=== PATIENT | female | born 1985 | race Caucasian/White ===

== ENCOUNTER 2023-06-04 06:39 | Day surgery (SDC) | payer MEDICARE, SELFPAY ==
--- NOTE | 2023-06-01 08:25 | EKG12_ITS ---
Test Reason : PRE OP Blood Pressure : / mmHG Vent. Rate : 091 BPM Atrial Rate : 091 BPM P-R Int : 184 ms QRS Dur : 090 ms QT Int : 348 ms P-R-T Axes : 066 017 070 degrees QTc Int : 428 ms Normal sinus rhythm Normal ECG Confirmed by Manjit Kunz ([id number]), news editor RUY TIPTON ([id number]) on 06/02/2023 7:43:05 AM Referred By: Stacie Zhu Confirmed By:Manjit Kunz
--- OUTSIDE RECORDS SUMMARY | 2023-06-04 06:42 | XMS RPT_ITS | CCD ---
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 of 2 - PCV) Never done HIV Screening Never done Hepatitis C Screening Never done Sequential Influenza Vaccine (1) Never done COVID-19 Vaccine (2022- season) Never done Assessment & Plan Problem List Items Addressed This Visit Cardiovascular and Mediastinum Hypertension - Primary Going back on amlodipine 10 mg along with lisinopril 40 mg Monitor blood pressure at home AM and PM for 2 weeks and keep a log of the blood pressure Nurse visit for BP check in 2 weeks Potentially adding a medication called carvedilol Relevant Medications amLODIPine (NORVASC) 10 MG tablet prazosin (MINIPRESS) 1 MG capsule Other Relevant Orders TSH with Reflex Free T4 (Completed) Microalbumin/Creatinine Ratio, UR Random (Completed) Lipid Panel (Completed) Comprehensive Metabolic Panel (Completed) Nervous and Auditory Trigeminal neuralgia Not feeling much difference with carbamazepine, encouraged to reach out to Dr. Foreman with further evaluation, still awaiting further imaging Genitourinary Interstitial cystitis Working with Dr. Zhu on further evaluation, no effects of Gemtesa at this time. Looking at further intervention and possibly pudendal nerve injections or Botox injections to help with the pain. Will get records. Other Familial hypercholesterolemia Significant improvement with switching to pravastatin 20 mg, lipid panel on recheck improved slightly, might benefit from increasing pravastatin to 40 mg, still awaiting to hear from patient about that. Surgical menopause on hormone replacement therapy Has been on it for 9 years following hysterectomy in 2017 due to endometriosis. Discussed the long-term complications of staying on hormone replacement, will discuss possibly weaning off of that once her pain is relatively under control as well as her mental health. Obesity, morbid (HCC) Continue to work on lifestyle modifications with controlling underlying anxiety and depression. Relevant Orders Hemoglobin A1c (Completed) Moderate major depression (HCC) Encouraged to look into counseling with EMDR resources. Potentially referring to psychiatry but trying 1 step at a time as patient is overwhelmed. No SI or HI. Agreeable to start prazosin to help with PTSD symptoms. Might benefit from retrying Cymbalta to help with overall pain and treat underlying anxiety and depression which has been tried in the past and was not effective, unable to tell for sure what happened with that. Relevant Orders CBC and Differential (Completed) Other Visit Diagnoses PTSD (post-traumatic stress disorder) Relevant Medications prazosin (MINIPRESS) 1 MG capsule My ongoing relationship with Ayla Mendiola requires continued responsibility and cognitive effort of being the focal point for all services related to chronic condition(s). Return in about 3 months (around 08/26/2023) for Follow Up. SCOTT LUCIO MD [facility] [address] [facility] [id number] Dept: [phone] 09/02/2019 7:50 PM 07/30/2021 1:00 PM 11/11/2022 8:00 AM 02/10/2023 8:28 AM 05/28/2023 10:07 AM Depression Screening Little interest or pleasure in doing things 0 1 1 0 1 Feeling down, depressed, or hopeless 0 1 1 0 1 PHQ-2 Total Score 0 2 2 0 2 Trouble falling or staying asleep, or sleeping too much 3 1 2 0 Feeling tired or having little energy 3 3 3 3 Poor appetite or overeating 1 1 0 1 Feeling bad about yourself - or that you are a failure or have let yourself or your family down 1 1 0 0 Trouble concentrating on things, such as reading the newspaper or watching television 2 2 2 2 Moving or speaking so slowly that other people could have noticed. Or the opposite - being so fidgety or restless that you have been moving around a lot more than usual 0 0 0 0 Thoughts that you would be better off , or of hurting yourself in some way 0 0 0 0 PHQ-9 Total Score 12 10 7 8 If you checked off any problems, how difficult have these problems made it for you to do your work, take care of things at home, or get along with other people? Very difficult Somewhat difficult Somewhat difficult Somewhat difficult documented in this encounter [facility] 05-29-2023 Evaluation + Plan note Associ ated Problem(s): Interstitial cystitis Working with Dr. Zhu on further evaluation, no effects of Gemtesa at this time. Looking at further intervention and possibly pudendal nerve injections or Botox injections to help with the pain. Will get records. [facility] 05-29-2023 Miscellaneous Notes Associate d Problem(s): Interstitial cystitis Working with Dr. Zhu on further evaluation, no effects of Gemtesa at this time. Looking at further intervention and possibly pudendal nerve injections or Botox injections to help with the pain. Will get records. Associated Problem(s): Surgical menopause on hormone replacement therapy Has been on it for 9 years following hysterectomy in 2017 due to endometriosis. Discussed the long-term complications of staying on hormone replacement, will discuss possibly weaning off of that once her pain is relatively under control as well as her mental health. Associated Problem(s): Obesity, morbid (HCC) Continue to work on lifestyle modifications with controlling underlying anxiety and depression. Associated Problem(s): Moderate major depression (HCC) Encouraged to look into counseling with EMDR resources. Potentially referring to psychiatry but trying 1 step at a time as patient is overwhelmed. No SI or HI. Agreeable to start prazosin to help with PTSD symptoms. Might benefit from retrying Cymbalta to help with overall pain and treat underlying anxiety and depression which has been tried in the past and was not effective, unable to tell for sure what happened with that. Associated Problem(s): Familial hypercholesterolemia Significant improvement with switching to pravastatin 20 mg, lipid panel on recheck improved slightly, might benefit from increasing pravastatin to 40 mg, still awaiting to hear from patient about that. Associated Problem(s): Trigeminal neuralgia Not feeling much difference with carbamazepine, encouraged to reach out to Dr. Foreman with further evaluation, still awaiting further imaging Associated Problem(s): Hypertension Going back on amlodipine 10 mg along with lisinopril 40 mg Monitor blood pressure at home AM and PM for 2 weeks and keep a log of the blood pressure Nurse visit for BP check in 2 weeks Potentially adding a medication called carvedilol documented in this encounter [facility] 05-29-2023 Evaluation + Plan note Associ ated Problem(s): Surgical menopause on hormone replacement therapy Has been on it for 9 years following hysterectomy in 2017 due to endometriosis. Discussed the long-term complications of staying on hormone replacement, will discuss possibly weaning off of that once her pain is relatively under control as well as her mental health. [facility] 05-29-2023 Evaluation + Plan note Associ ated Problem(s): Obesity, morbid (HCC) Continue to work on lifestyle modifications with controlling underlying anxiety and depression. [facility] 05-29-2023 Evaluation + Plan note Associ ated Problem(s): Moderate major depression (HCC) Encouraged to look into counseling with EMDR resources. Potentially referring to psychiatry but trying 1 step at a time as patient is overwhelmed. No SI or HI. Agreeable to start prazosin to help with PTSD symptoms. Might benefit from retrying Cymbalta to help with overall pain and treat underlying anxiety and depression which has been tried in the past and was not effective, unable to tell for sure what happened with that. [facility] 05-29-2023 Evaluation + Plan note Associ ated Problem(s): Familial hypercholesterolemia Significant improvement with switching to pravastatin 20 mg, lipid panel on recheck improved slightly, might benefit from increasing pravastatin to 40 mg, still awaiting to hear from patient about that. [facility] 05-29-2023 Evaluation + Plan note Associ ated Problem(s): Trigeminal neuralgia Not feeling much difference with carbamazepine, encouraged to reach out to Dr. Foreman with further evaluation, still awaiting further imaging [facility] 05-28-2023 Evaluation + Plan note Associ ated Problem(s): Hypertension Going back on amlodipine 10 mg along with lisinopril 40 mg Monitor blood pressure at home AM and PM for 2 weeks and keep a log of the blood pressure Nurse visit for BP check in 2 weeks Potentially adding a medication called carvedilol [facility] 05-21-2023 Instructions Breezy Foreman MD - 05/21/2023 8:28 AM EST Ms. Mendiola, While most likely the source of your trigeminal neuropathy (nerve injury) is the old infection, we will get an MRI just to make sure it is not anything different. In the meantime, we will treat it to get rid of any discomfort. Today, we are going to start you on a new medication, called oxcarbazepine. Sometimes it is known by its brand name, Trileptal. It is used for treatment of different conditions, including seizures, migraines, trigeminal neuralgia, neuropathy, or as a mood stabilizer. It works by acting on sodium channels and affecting levels of certain neurotransmitters in the brain as well as acting as a muscle relaxant. We will start at a dose of 150mg in the morning, with an optional dose at nighttime if you have pain in the night. Everyone's body processes medication differently depending on a wide variety of factors. Your dose or frequency may need adjusted over time which does not necessarily mean that it is not the right medicine for you. Many patients require 600mg or more per day. After 2 weeks, let me know if the medication is not strong enough and we may increase the dose. While most patients do very well with the medication, like all medications it can cause side effects in a small portion of patients. The most common side effects include nausea, dizziness/ imbalance, drowsiness, blurry vision, itching, low sodium, low white blood cells, or tremors. Rare but serious side effects include rash, liver injury or severe low blood counts. For the most part, side effects fade as your body adjusts. However, if you get severe side effects or if they are not improving after several weeks, let me know and we will stop the medication and choose an alternative for you. If you have an allergic reaction (shortness of breath, rash, swelling of the mouth, lips, or throat) please seek medical attention right away. This medication requires initial and maintenance bloodwork including blood cell counts, sodium monitoring, and liver/kidney monitoring. In this case, you will need a repeat sodium level in 3 months. I have ordered this already. Many medications can interact with each other and can sometimes cause issues. After reviewing your medication list today, we feel that the risk of interaction is low enough to be worthwhile. However if you add new medications over time, or if new medical issues such as liver or kidney failure arise, this decision may change, so it is important you make sure you keep your medication list up to date over time. It was a pleasure taking care of you, and we all wish you the best of health. For concerns regarding medicines, adjusting doses or other questions: Call : [phone] (direct phone line to neurology staff) - leave a message if no one is available. (Note that [phone] is still listed on most of our paperwork and is a general line to the call pool in [place]; the number above is a faster way to get in touch with our staff here in [place]) [employer] - the best way to send messages directly to your doctors, or request Drug Refills. Call [phone] to set up iConText on your smart phone or computer. Mailing Address: Attn: Dr. Breezy Daughertyyudithrakel Dsouza, [id number], [facility] [id number] Our documented in this encounter [facility] 05-21-2023 History of Presen t illness Narrative Neurology New Consult Note [facility] Date of Service: 05/21/23 Service Type: New Patient consultation Patient: Ayla Mendiola Date of : 1985 (37 y.o.) Referring Provider: Refer to consult order in electronic medical record PCP: Scott Lucio MD ASSESSMENT: Ayla Mendiola is a 37 y.o. woman who presents for evaluation for possible trigeminal neuralgia Patient reports 8 or so years ago she had a severe left ear infection requiring hospitalization. Subsequently she developed left sided facial pain. She has some background pain and episodes of worsening in setting of the cold. 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 There is some left facial weakness as well suggesting more generalized injury. It would have to be a pretty severe infection to have spread far enough to injure both the facial and trigeminal nerves, but I have no records of what kind of infectious process it was. I do not have access to prior MRIs so I'm unsure if they included vascular imaging; we felt it was reasonable to obtain an MRI/MRA of the head to look for vascular compression or areas of scarring/injury. Otherwise, we will manage symptomatically. Previous medication trials of venlafaxine, duloxetine were not helpful for mood or pain. On gabapentin, nortriptyline, and clonazepam for interstitial cystitis. Pudendal nerve blocks were done in the past for that. She has never been on carbamazepine, oxcarbazepine, or any other med for TN other than the gabapentin which was initially prescribed for IC. Will start with oxcarbazepine. Problems addressed in this visit: 1. Trigeminal neuralgia 2. Long-term use of high-risk medication PLAN: Medication changes: oxcarbazepine 150mg daily, then if tolerating increase to 150mg BID; in 2 weeks, message/call in and let me know if dose needs increased. Labs: CMP, CBC in 3 months if still on the medication Imaging: MRI/MRA head w and w/o Other: none Follow Up: in person 6 months, call in 2 weeks with drug update Attestation: Discussed risks, benefits and alternatives regarding treatment options, and diagnoses with Ms. Mendiola. Answered questions and we discussed plan at length. I independently reviewed past history, previous clinic notes, lab results, allergies, medications and radiology images which are summarized in this note with annotations wherever appropriate. Time statement: A total of 61 minutes were spent on this encounter. This includes the following patient-centered activities: 1. Preparation for patient's visit (reviewing previous chart, current medical records, previous history, exam, test, procedure, and medications) 2. Face to face encounter obtaining history from the patient/family/caregivers; performing evaluation and examination; ordering medications, tests, or procedures; referring and communicating with other healthcare professionals; counseling and education of the patient/family/caregiver; independently interpreting results (tests, labs, procedures, imaging) and communicating and explaining results to the patient/family/caregiver 3. Coordination of care; preparing and printing discharge instruction and any educational material for the patient and caregivers. Documenting clinical information in the electronic and other health records. Reviewing OARRS as needed. Breezy Foreman MD Staff Neurologist [facility] [address] [id number], [address] 05/21/23 Subjective Chief Complaint/Reason for Consult: trigeminal neuralgia? Informant(s): self Initial History of Present Illness 05/21/23: Ayla Mendiola is a 37 y.o. woman who reports a pertinent history of anxiety/depression, HTN, HLD, interstitial cystitis, IBS, who presents to the office today for evaluation for possible trigeminal neuralgia. She reports that in 2014 she developed a severe ear infection on the left side. I do not have many records available but she says she was admitted to the hospital for several days for IV antibiotics by her ENT doctor at the time. Subsequent to this she began noticing left facial pain. There is a dull background burning pain which is present all the time but is mild. Then there are occasional flareups, which are most commonly triggered by cold weather but can be triggered by wind. At their shortest they last 2 minutes or so but there was a period last winter when it hurt severely for weeks at a time. The pain is mostly along the left side of the jaw but radiates a bit into the left cheek and around the left ear. Currently, the flareups are about once every 6-8 weeks. There are no other symptoms with it. No hearing loss. She says she has chronic keratitis of the eyes (though they appear normal; unclear if there is another diagnosis) but does not follow with an eye doctor, though it causes mild blurry vision. There is no major pain anywhere else except for her interstitial cystitis which causes a lot of discomfort and disability. Had an MRI years ago and saw a neurologist who diagnosed her with TN but she never followed up. She does have a history of migraines prior to the facial pain as well. They are not particularly common at this point. Has been on duloxetine in the past which was not helpful. Takes gabapentin, clonazepam, nortriptyline for interstitial cystitis; her PCP increased the gabapentin to try to help the TN, which was only partly helpful. She has never tried carbamazepine, oxcarbazepine, topiramate, or lamotrigine. She had a concussion, mild, when she was 6 or so but no other head injuries. No intracranial surgeries. No family h/o headache disorders. Review of Systems: All systems reviewed and negative except those documented in the History of Present Illness (HPI). Pertinent positives are documented below: + facial pain + urinary frequency + abdominal pain Medical/Surgical/Social/Family Histories: Pertinent Family Hx: neg for headache disorders, strokes, brain tumors, etc Social situation: smokes, lives alone, no kids, is not working (on disability) She has a past medical history of Anxiety and depression, Chronic fatigue syndrome, Ear infection, Endometriosis, Familial hypercholesterolemia (08/01/2021), Hyperlipidemia (08/01/2021), Hypertension (08/01/2021), IBS (irritable bowel syndrome), Interstitial cystitis, Obesity, PCOS (polycystic ovarian syndrome), Surgical menopause on hormone replacement therapy, and Trigeminal neuralgia. She has a past surgical history that includes Laparascopic Assisted Vaginal Hysterectomy W/ A-P Repair; Diagnostic laparoscopy with ablation endometriosis; Tattoos; Ear piercings; Cystoscopies; Vestibulectomy; Abdominal surgery; Appendectomy; Hysterectomy; and Appendectomy Laparoscopic (N/A, 09/03/2019). She family history includes Arthritis in her mother; Breast cancer in her paternal grandmother; Cancer in her paternal grandfather and paternal grandmother; Diabetes in her paternal grandfather; Hypertension in her father and paternal grandfather; Kidney disease in her maternal grandmother; Miscarriages / Stillbirths in her mother; Vision loss in her paternal grandfather. She reports that she has been smoking cigarettes. She has a 7.5 pack-year smoking history. She has never used smokeless tobacco. She reports current alcohol use. She reports that she does not use drugs. Allergies: Allergies: Patient has no known allergies. HOME Medications: Current Outpatient Medications Medication Instructions amLODIPine (NORVASC) 10 mg, Oral, Daily cholecalciferol (vitamin D3) 2,000 Units, Oral, Daily, Start after completion of vit D 50,000 IU clonazePAM (KLONOPIN) 0.5 mg, Oral, At bedtime estradioL (VIVELLE-DOT,AAMIR) 0.1 mg/24 hr bi-weekly patch 1 patch, Transdermal, 2 times weekly, Thursday, Thursday gabapentin (NEURONTIN) 800 mg, Oral, 4 times daily hydrOXYzine (ATARAX) 10 mg, Oral, 3 times daily PRN lisinopriL (PRINIVIL,ZESTRIL) 40 mg, Oral, Daily nortriptyline (PAMELOR) 25 mg, Oral, At bedtime OXcarbazepine (TRILEPTAL) 150 mg, Oral, 2 times daily pravastatin (PRAVACHOL) 20 mg, Oral, Nightly tiZANidine (ZANAFLEX) 4 mg, Oral, 3 times daily PRN Objective OBJECTIVE: Physical Examination: BP (!) 169/130 (BP Location: Left arm, Patient Position: Sitting, BP Cuff Size: X-large Adult) Comment: patient feeling very nervous Pulse (!) 105 SpO2 98% GENERAL: General Appearance: In NAD HEENT: Normocephalic. No conjunctival injection. Ears appear normal. No substantial sinus drainage. See below for vision/hearing Neck: Supple, no focal bony tenderness, no mass lesions Respiratory Effort: Normal Extremities: No edema Skin: No rashes visualized MSK: No joint deformities Headache specific exam shows mild left temporal and inferior parietal scalp tenderness. no scalp mass. no areas of tenderness over the mastoid, greater or lesser occipital nerve exit points. no vascular thickening or other mass lesions noted over the temples. TMJ is nontender, and unrestricted. no sinus tenderness noted anywhere. no tenderness over the cervical paraspinal muscles, trapezius muscles, and scapular muscles. no myofascial trigger point tenderness elsewhere. Fundoscopic Exam: difficult to visualize optic discs on non-dilated exam. Neurologic Exam: MENTAL STATUS: Alertness, Attention Span & Concentration: Normal Language: Normal Speech: Normal Orientation: Oriented to person, place, time/date, and situation Memory, Recent & Remote: Normal Fund of Knowledge: Normal CRANIAL NERVES: II - Visual Ash: Normal II, III: Pupils: PERRL, no RAPD III, IV, : Eye Movements: Normal (EOMI, No ptosis, No nystagmus) V - Facial Sensation: Intact throughout but hypersensitive in left V3 and slightly V2 territories. VII: Face Symmetry & Strength: mild upper and lower facial weakness on the left side in the form of slower activation. VIII - Hearing: Normal to finger rub b/l IX, X - Palate: Normal, elevates symmetrically XI - Shoulder Shrug: Normal XII - Tongue Protrusion: Normal, symmetric MOTOR: Muscle Strength Right Left 5 Shoulder Abduction (Deltoid) 5 5 Elbow Flexion (Biceps) 5 5 Elbow Extension (Triceps) 5 5 Wrist Flexion 5 5 Wrist Extension 5 5 Finger Abduction (Interossei) 5 Right Left 5 Hip Extension 5 5 Hip Flexion (Iliopsoas) 5 5 Knee Extension (Quads) 5 5 Knee Flexion (Hamstrings) 5 5 Dorsiflexion (Anterior Tibialis) 5 5 Plantar Flexion (Gastrocnemius) 5 MOTOR JOHNSON: 5 Normal (Normal Power) 4 Mild Weakness (Movement against moderate resistance over a full range of motion) 3 Moderate Weakness (Movement against gravity only over almost full range of motion) 2 Severe Weakness (Movement with gravity eliminated over almost full range of motion) 1 Trace Movement (Contraction visible or palpable without effective movement of the joint) 0 No Movement (No contraction visible or palpable) EDIE Unable to Assess Normal Bulk and Tone, no atrophy SENSATION: Fine Touch: Normal Pinprick: Normal Proprioception: Normal Vibration: Normal Temperature: Normal REFLEXES: Right Reflexes Left 2+ Biceps 2+ 2+ Triceps 2+ 2+ Brachioradialis 2+ 2+ Patellar 2+ 2+ Achilles 2+ Down Plantar Response (Babinski) Down REFLEXES JOHNSON: 4+ Sustained Clonus 3+ Brisk 2+ Normal 1+ Diminished 0 Absent EDIE Unable to Assess COORDINATION: Coordination Kvekjf-ol-Csyp: Normal Sahni Finger taps: normal Coordination Mgpt-Cgwf-Rlxi: normal Diadochokinesis: normal STANCE AND GAIT: Base/Stance: Normal/ narrow base Gait: Normal with regards to heel strike, stride length, bud, turn, and arm swing Gait Aid Used During Exam: None Gait Assistance Required During Exam: None MOVEMENT DISORDERS EXAMINATION: Tremor - no tremors noted Bradykinesia - None Rigidity - None Dyskinesia/Choreoathetosis - None Dystonia/Myoclonus/Tics - None PRIOR TESTING: Imaging: 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 Last A1c 5.3. TSH WNL. SPEP normal. Vit D was 27 but started supplementation at that time. Chol 273, Trig 208, HDL 35, LDL 196. BOB + 1:320 homogenous. RF 18.3. CCP, anti-DS DNA, anti-Sm and anti-HYDRAULIC MINER negative. HLA-B27 negative. documented in this encounter [facility] 05-08-2023 Telephone encount er Note Last OV 03/05/23 (). Next OV 05/28/23. [facility] 05-08-2023 Miscellaneous Notes Formattin g of this note might be different from the original. Last OV 03/05/23 (TH). Next OV 05/28/23. documented in this encounter [facility] 05-05-2023 Telephone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 swelling. Gastrointestinal: Negative for abdominal pain, blood in stool, constipation, diarrhea and nausea. Endocrine: Negative for cold intolerance, heat intolerance, polydipsia and polyuria. Genitourinary: Positive for frequency (Chronic), pelvic pain (Chronic) and urgency (Chronic). Neurological: Negative for dizziness, tremors, seizures, syncope, weakness, light-headedness, numbness and headaches. Psychiatric/Behavioral: Positive for decreased concentration, dysphoric mood and sleep disturbance. Negative for agitation, self-injury and suicidal ideas. The patient is nervous/anxious. Objective There were no vitals filed for this visit. Estimated body mass index is 35.08 kg/m as calculated from the following: Height as of 07/30/21: 5' 7.8 . Weight as of 07/30/21: 104 kg (229 lb 4.8 oz). Physical Exam Vitals reviewed: Limited due to video visit. Pt speaking full sentences. . Constitutional: Appearance: Normal appearance. HENT: Head: Normocephalic and atraumatic. Nose: No congestion. Eyes: Extraocular Movements: Extraocular movements intact. Pulmonary: Effort: Pulmonary effort is normal. No respiratory distress. Neurological: General: No focal deficit present. Mental Status: She is alert and oriented to person, place, and time. Psychiatric: Mood and Affect: Mood normal. Behavior: Behavior normal. Thought Content: Thought content normal. Judgment: Judgment normal. PHQ9: LUPE-7 Tobacco Counseling: Ready to quit: Not Answered Counseling given: Not Answered Tobacco comments: 1/2 ppd X 10 years Assessment/Plan: Problem List Anxiety and depression Longstanding history of anxiety depression, acutely exacerbated circumstantially after taking care of her parents Discontinue celexa- symptoms worsened -start effexor 150mg daily Pt taking hydroxizine 20mg nightly Patient was given handout to reach out to counseling services locally Alarming/Red flag signs and symptoms discussed with the patient, patient instructed to seek medical attention at ED [facility] if any such symptoms develop. Pt expressed understanding. Relevant Medications venlafaxine (EFFEXOR-XR) 150 MG 24 hr capsule Hypertension - Primary Severely elevated blood pressure noted - discussed additional testing, renal US -discontinue hydrochlorothiazide Start chlorthalidone 25mg and norvasc 10mg daily Will test tsh, ha1c, renin, aldosterone, metanephrines -Discussed-diet and low-sodium diet, tobacco cessation and avoidance of caffeine Relevant Medications chlorthalidone (HYGROTON) 25 MG tablet amLODIPine (NORVASC) 10 MG tablet Other Relevant Orders US Renal Only Cortisol, AM Metanephrines, Fractionated, UR 24 Hr Catecholamines, Fractionated, Urine, 24 Hr Basic Metabolic Panel Hyperlipidemia Very suspicious of familial hypercholesterolemia -pt denies any family hx of this -LDL 208, Apo A 117, Apo B 150 -started atorvastatin 40mg -lipid panel in 6 weeks- If this does not improve, will increase statin to 80mg and add zetia Return in about 2 weeks (around 09/04/2021) for Follow up Nurse Visit -BP. For any new medications prescribed today, patient was educated about indications for the medication, how to take the medication and potential side effects of the medications. Nurys Collins MD [facility] [address] [facility] [address] [facility] [id number] Dept: [phone] documented in this encounter [facility] 08-21-2021 Evaluation + Plan note Associ ated Problem(s): Anxiety and depression Longstanding history of anxiety depression, acutely exacerbated circumstantially after taking care of her parents Discontinue celexa- symptoms worsened -start effexor 150mg daily Pt taking hydroxizine 20mg nightly Patient was given handout to reach out to counseling services locally Alarming/Red flag signs and symptoms discussed with the patient, patient instructed to seek medical attention at ED [facility] if any such symptoms develop. Pt expressed understanding. [facility] 08-01-2021 Instructions Nurys Collins MD - 08/01/2021 5:46 PM EDT Problem List Items Addressed This Visit Cardiovascular and Mediastinum Hypertension - Primary Severely elevated blood pressure noted in clinic Patient received 0.25 m of clonidine in clinic and this brought patient's blood pressure down from 200/ 126 to 193/147 Will test tsh, ha1c, renin, aldosterone, metanephrines -Discussed-diet and low-sodium diet, tobacco cessation and avoidance of caffeine We will start hydrochlorothiazide 25 mg daily Advised patient to measure blood pressure over the next week and call in with blood pressure logs Relevant Medications hydroCHLOROthiazide (HYDRODIURIL) 25 MG tablet Other Relevant Orders CBC and Differential (Completed) Comprehensive Metabolic Panel (Completed) Vitamin D, Total, 25-OH (Completed) TSH with Reflex Free T4 (Completed) Lipid Panel (Completed) Hemoglobin A1c (Completed) Renin Activity Aldosterone Metanephrines Fract, Free Genitourinary Interstitial cystitis Patient is following up with pelvic pain specialist in [place] Has history of receiving for pudendal nerve blocks and is currently on clonazepam 0.5 mg nightly, gabapentin 800 mg 4 times daily, nortriptyline 25 mg nightly Symptoms are intermittently controlled Patient is currently on disability Other Anxiety and depression Longstanding history of anxiety depression, acutely exacerbated circumstantially after taking care of her parents We will start Celexa 20 mg daily Patient was given handout to reach out to counseling services locally Alarming/Red flag signs and symptoms discussed with the patient, patient instructed to seek medical attention at ED [facility]BD[facility] if any such symptoms develop. Pt expressed understanding. Relevant Medications citalopram (CELEXA) 20 MG tablet Hyperlipidemia We will test for hyperlipidemia Relevant Medications atorvastatin (LIPITOR) 40 MG tablet Other Relevant Orders Lipoprotein A (LPA) Apolipoprotein B (Completed) Lipid Panel Surgical menopause on hormone replacement therapy intermediate therapy w/ transdermal estradiol -in setting of hypertension, would consider switching to nonhormonal therapy -will await lipid panel If any referrals were placed at the time of your visit please allow 2 weeks for processing. If you haven't heard from anyone within 2 weeks please contact my office so we can look into the status of your referral. If you were given any labs today please ensure they are completed according to the directions given. Most normal results will be available through [employer] however if abnormal, you will be notified. Please allow 48-72 hours for review, and let you know what steps, if any, are needed next. If you haven't heard from us after that please call to inquire. If labs were ordered to be done PRIOR to your next visit we will discuss the results at the time of your office visit. If any procedures or imaging studies were ordered that must be prior authorized please give us 2 weeks to get them approved. Once approved someone should call you to schedule them or give you a date and time that they were scheduled for. If you haven't heard anything within 2 weeks of the office visit please call the office so we can look into their status. 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 -in setting of hypertension, would consider switching to nonhormonal therapy -will await lipid panel [facility] 08-01-2021 Miscellaneous Notes Associate d Problem(s): Surgical menopause on hormone replacement therapy intermediate therapy w/ transdermal estradiol -in setting of hypertension, would consider switching to nonhormonal therapy -will await lipid panel Associated Problem(s): Hypertension Severely elevated blood pressure noted in clinic Patient received 0.25 m of clonidine in clinic and this brought patient's blood pressure down from 200/ 126 to 193/147 Will test tsh, ha1c, renin, aldosterone, metanephrines -Discussed-diet and low-sodium diet, tobacco cessation and avoidance of caffeine We will start hydrochlorothiazide 25 mg daily Advised patient to measure blood pressure over the next week and call in with blood pressure logs Associated Problem(s): Interstitial cystitis Patient is following up with pelvic pain specialist in [place] Has history of receiving for pudendal nerve blocks and is currently on clonazepam 0.5 mg nightly, gabapentin 800 mg 4 times daily, nortriptyline 25 mg nightly Symptoms are intermittently controlled Patient is currently on disability Associated Problem(s): Hyperlipidemia We will test for hyperlipidemia Associated Problem(s): Anxiety and depression Longstanding history of anxiety depression, acutely exacerbated circumstantially after taking care of her parents We will start Celexa 20 mg daily Patient was given handout to reach out to counseling services locally Alarming/Red flag signs and symptoms discussed with the patient, patient instructed to seek medical attention at ED [facility] if any such symptoms develop. Pt expressed understanding. documented in this encounter [facility] 08-01-2021 Evaluation + Plan note Associ ated Problem(s): Hypertension Severely elevated blood pressure noted in clinic Patient received 0.25 m of clonidine in clinic and this brought patient's blood pressure down from 200/ 126 to 193/147 Will test tsh, ha1c, renin, aldosterone, metanephrines -Discussed-diet and low-sodium diet, tobacco cessation and avoidance of caffeine We will start hydrochlorothiazide 25 mg daily Advised patient to measure blood pressure over the next week and call in with blood pressure logs [facility] 08-01-2021 Evaluation + Plan note Associ ated Problem(s): Interstitial cystitis Patient is following up with pelvic pain specialist in [place] Has history of receiving for pudendal nerve blocks and is currently on clonazepam 0.5 mg nightly, gabapentin 800 mg 4 times daily, nortriptyline 25 mg nightly Symptoms are intermittently controlled Patient is currently on disability [facility] 08-01-2021 Evaluation + Plan note Associ ated Problem(s): Hyperlipidemia We will test for hyperlipidemia [facility] 08-01-2021 Evaluation + Plan note Associ ated Problem(s): Anxiety and depression Longstanding history of anxiety depression, acutely exacerbated circumstantially after taking care of her parents We will start Celexa 20 mg daily Patient was given handout to reach out to counseling services locally Alarming/Red flag signs and symptoms discussed with the patient, patient instructed to seek medical attention at ED ABDULKAD[facility] if any such symptoms develop. Pt expressed understanding. [facility] 07-30-2021 History of Presen t illness Narrative Scheduling instructions given after pt checked out and already gone, I called patient no answer, I LMOM telling pt Dr. Collins would like to do 1 week f/u it can be telehealth or in person to please all our office back to schedule this appointment. No scheduling instructions at check out No follow up appt scheduled at this time Subjective Patient ID: Ayla Mendiola is a 35 y.o. female. Chief Complaint Patient presents with [facility] Medication Refill Estrogen patches HPI Ayla Mendiola is a 35 y.o. female with a past medical history of anxiety, chronic fatigue syndrome, IBS, interstitial cystitis, trigeminal neuralgia, obesity, presenting as a new patient to the clinic today. Patient was visibly anxious/upset during our interview Depression and anxiety- patient's PHQ-9 score was 12 today. Patient states over the last few months she has been taking care of her father who was diagnosed with COVID-19. She endorses having significant stress related to this. During the last few months she states that she lost her sense of self and now that he has recovered, she does not know where to go from here . Patient feels very anxious, has dysphoric mood, restless sleep, feelings of guilt, fatigue and decreased motivation. She believes her symptoms have been longstanding even prior to her most recent circumstances however this has exacerbated her symptoms. Patient also states anxiety and feelings of hopelessness in relation to her chronic medical conditions. She is currently on disability for her interstitial cystitis. She does have a good support system with friends and family which she can talk to. She denies any thoughts of self-harm, new suicidal ideation/homicidal ideations and no previous hospitalizations for her symptoms. Interstitial cystitis- patient is currently on clonazepam 0.5 mg nightly, gabapentin 800 mg 4 times daily, nortriptyline 25 mg nightly. Symptoms are intermittently controlled. She has received pudendal blocks which also intermittently help. She does have a urologist that she follows up with in [place]. She was also previously tried Zanaflex, Percocets, and tramadol which have not helped with her pain. Patient has a history of endometriosis which was treated via hysterectomy in 2017. She is currently on transdermal estradiol. She denies hx of CVD, VTE, TIA, migraines, hypothyroidism, no hx of breast ca. Hypertension- patient is not aware of being diagnosed with hypertension previously and she denies any previous home blood pressure readings. Blood pressure today was significantly elevated at 189/145 and repeat was 193/146. Patient denied any chest pain, blurry vision, headaches, shortness of breath, wheezing, hematuria. She denies any history of SD or strokes. She does smoke half a pack a day of cigarettes daily but denies any significant caffeine use. She denies any energy drinks. She denies any cold or heat intolerance, no weight changes or skin changes recently, no history of thyroid disease, no xanthelasmas noted, no polydipsia or polyphagia [patient does have polyuria due to interstitial cystitis]. She does state feeling anxious however we discussed that even with increased anxiety blood pressure this elevated would require treatment. Blood pressure taken a third time at the end of our interview was 200/126- she was administered 0.2 mg of clonidine and repeat blood pressure was 193/147. We discussed starting hydrochlorothiazide 25 mg today and closely monitoring her blood pressure at home. Advised tobacco cessation and avoiding caffeine. Also advised patient to adhere to DASH diet/low-sodium diet. Patient does have a family history of cardiovascular disease. All pertinent positives and negatives are documented in ROS Patient's medications, allergies, past medical history, surgical history history, family history, social history were reviewed. Spent more than 30 minutes with patient, coordinating patient care, including reviewing charts and counseling patient. Past Medical History: Diagnosis Date Chronic fatigue syndrome Ear infection Endometriosis Hyperlipidemia 08/01/2021 Hypertension 08/01/2021 IBS (irritable bowel syndrome) Interstitial cystitis Obesity PCOS (polycystic ovarian syndrome) Surgical menopause on hormone replacement therapy Trigeminal neuralgia Past Surgical History: Procedure Laterality Date ABDOMINAL SURGERY APPENDECTOMY APPENDECTOMY LAPAROSCOPIC N/A 09/03/2019 Procedure: APPENDECTOMY LAPAROSCOPIC; Surgeon: Beka Portillo MD; Location: Main OR; Service: General Surgery Cystoscopies Multiple Diagnostic laparoscopy with ablation endometriosis approximately 4 times Ear piercings HYSTERECTOMY LAPARASCOPIC ASSISTED VAGINAL HYSTERECTOMY W/ A-P REPAIR Tattoos Vestibulectomy Family History Problem Relation Age of Onset Breast cancer Paternal Grandmother Cancer Paternal Grandmother Breast Cancer Arthritis Mother Miscarriages / Stillbirths Mother Hypertension Father Kidney disease Maternal Grandmother Cancer Paternal Grandfather Bladder Cancer Diabetes Paternal Grandfather Hypertension Paternal Grandfather Vision loss Paternal Grandfather Social History Tobacco Use Smoking status: Current Every Day Smoker Packs/day: 0.50 Years: 15.00 Pack years: 7.50 Types: Cigarettes Smokeless tobacco: Never Used Tobacco comment: 1/2 ppd X 10 years Vaping Use Vaping Use: Never used Substance Use Topics Alcohol use: Yes Comment: Occasionally a few times a year Drug use: No No Known Allergies Patient's Medications New Prescriptions ATORVASTATIN (LIPITOR) 40 MG TABLET Take 0.5 (one-half) tablet (20 mg total) by mouth daily for 7 days, THEN 1 (one) tablet (40 mg total) daily. CHOLECALCIFEROL, VITAMIN D3, 50 MCG (2,000 UNIT) TAB Take 1 (one) tablet (2,000 Units total) by mouth daily Start after completion of vit D 50,000 IU . CITALOPRAM (CELEXA) 20 MG TABLET Take 1 (one) tablet (20 mg total) by mouth daily . ERGOCALCIFEROL (ERGOCALCIFEROL) 1,250 MCG (50,000 UNIT) CAPSULE Take 1 (one) capsule (50,000 Units total) by mouth once a week for 8 doses . HYDROCHLOROTHIAZIDE (HYDRODIURIL) 25 MG TABLET Take 1 (one) tablet (25 mg total) by mouth daily . Previous Medications CLONAZEPAM (KLONOPIN) 0.5 MG TABLET Take 0.5 mg by mouth at bedtime . GABAPENTIN (NEURONTIN) 400 MG CAPSULE Take 800 mg by mouth 4 (four) times a day . HYDROXYZINE (ATARAX) 10 MG TABLET NORTRIPTYLINE (PAMELOR) 25 MG CAPSULE Take 25 mg by mouth at bedtime . Modified Medications Modified Medication Previous Medication ESTRADIOL (VIVELLE-DOT,AAMIR) 0.1 MG/24 HR BI-WEEKLY PATCH estradioL (VIVELLE-DOT,AAMIR) 0.1 mg/24 hr bi-weekly patch Place 1 (one) patch on the skin twice weekly Thursday, Thursday Start: 08/01/21. Place on the skin twice weekly Thursday, Thursday . Discontinued Medications HYDROXYZINE (ATARAX) 25 MG TABLET Take 25 mg by mouth at bedtime . IBUPROFEN 200 MG CAP Take 200 mg by mouth 2 (two) times a day as needed . OXYCODONE-ACETAMINOPHEN (PERCOCET) 5-325 MG PER TABLET Take 1 tablet by mouth every 6 (six) hours as needed for pain pain . TIZANIDINE (ZANAFLEX) 2 MG TABLET TIZANIDINE (ZANAFLEX) 2 MG TABLET Take 2 mg by mouth at bedtime . TRAMADOL (ULTRAM) 50 MG TABLET Take 50 mg by mouth 2 (two) times a day as needed . Review of Systems Constitutional: Positive for activity change, appetite change and fatigue. Negative for fever. Eyes: Negative for visual disturbance. Respiratory: Negative for cough, chest tightness, shortness of breath and wheezing. Cardiovascular: Negative for chest pain, palpitations and leg swelling. Gastrointestinal: Negative for abdominal pain, blood in stool, constipation, diarrhea and nausea. Endocrine: Negative for cold intolerance, heat intolerance, polydipsia and polyuria. Genitourinary: Positive for frequency (Chronic), pelvic pain (Chronic) and urgency (Chronic). Neurological: Negative for dizziness, tremors, seizures, syncope, weakness, light-headedness, numbness and headaches. Psychiatric/Behavioral: Positive for decreased concentration, dysphoric mood and sleep disturbance. Negative for agitation, self-injury and suicidal ideas. The patient is nervous/anxious. Objective Vitals: 07/30/21 0759 07/30/21 0801 07/30/21 0856 BP: (!) 189/145 (!) 193/146 (!) 193/147 BP Location: Right arm Right arm Patient Position: Sitting Sitting BP Cuff Size: X-large Adult X-large Adult Pulse: (!) 100 Resp: 18 Temp: 98.3 F (36.8 C) TempSrc: Temporal SpO2: 98% Weight: 104 kg (229 lb 4.8 oz) Height: 5' 7.8 Estimated body mass index is 35.08 kg/m as calculated from the following: Height as of this encounter: 5' 7.8 . Weight as of this encounter: 104 kg (229 lb 4.8 oz). Physical Exam Vitals and nursing note reviewed. Constitutional: Appearance: Normal appearance. She is obese. HENT: Head: Normocephalic and atraumatic. Right Ear: Tympanic membrane and external ear normal. Left Ear: Tympanic membrane and external ear normal. Mouth/Throat: Mouth: Mucous membranes are moist. Pharynx: Oropharynx is clear. Eyes: Extraocular Movements: Extraocular movements intact. Conjunctiva/sclera: Conjunctivae normal. Pupils: Pupils are equal, round, and reactive to light. Neck: Thyroid: No thyroid mass, thyromegaly or thyroid tenderness. Trachea: Trachea normal. Cardiovascular: Rate and Rhythm: Regular rhythm. Tachycardia present. Chest Wall: PMI is not displaced. Pulses: Normal pulses. Carotid pulses are 2+ on the right side and 2+ on the left side. Dorsalis pedis pulses are 2+ on the right side and 2+ on the left side. Posterior tibial pulses are 2+ on the right side and 2+ on the left side. Heart sounds: Normal heart sounds. Pulmonary: Effort: Pulmonary effort is normal. No respiratory distress. Breath sounds: Normal breath sounds and air entry. No transmitted upper airway sounds. Abdominal: General: Abdomen is flat. Bowel sounds are normal. There is no distension. Palpations: Abdomen is soft. There is no mass. Tenderness: There is abdominal tenderness (Chronic) in the suprapubic area. There is no guarding. Musculoskeletal: General: Normal range of motion. Cervical back: Normal range of motion. Right lower leg: No edema. Left lower leg: No edema. Lymphadenopathy: Cervical: No cervical adenopathy. Skin: General: Skin is warm. Findings: No rash. Neurological: General: No focal deficit present. Mental Status: She is alert and oriented to person, place, and time. Mental status is at baseline. Cranial Nerves: Cranial nerves are intact. No cranial nerve deficit. Sensory: Sensation is intact. No sensory deficit. Motor: Motor function is intact. Coordination: Coordination is intact. Gait: Gait is intact. Psychiatric: Attention and Perception: Attention and perception normal. Mood and Affect: Mood is anxious. Affect is tearful. Speech: Speech normal. Behavior: Behavior normal. Behavior is cooperative. Thought Content: Thought content normal. Thought content does not include homicidal or suicidal ideation. Cognition and Memory: Cognition and memory normal. Judgment: Judgment normal. PHQ9: Over the last 2 weeks, how often have you been bothered by any of the following problems? Little interest or pleasure in doing things: Several days Feeling down, depressed, or hopeless: Several days PHQ-2 Total Score: 2 Trouble falling or staying asleep, or sleeping too much: Nearly every day Feeling tired or having little energy: Nearly every day Poor appetite or overeating: Several days Feeling bad about yourself - or that you are a failure or have let yourself or your family down: Several days Trouble concentrating on things, such as reading the newspaper or watching television: More than half the days Moving or speaking so slowly that other people could have noticed. Or the opposite - being so fidgety or restless that you have been moving around a lot more than usual: Not at all Thoughts that you would be better off , or of hurting yourself in some way: Not at all PHQ-9 Total Score: 12 If you checked off any problems, how difficult have these problems made it for you to do your work, take care of things at home, or get along with other people?: Very difficult LUPE-7 Tobacco Counseling: Ready to quit: Not Answered Counseling given: Not Answered Comment: 12 ppd X 10 years Assessment/Plan: Problem List Interstitial cystitis Patient is following up with pelvic pain specialist in [place] Has history of receiving for pudendal nerve blocks and is currently on clonazepam 0.5 mg nightly, gabapentin 800 mg 4 times daily, nortriptyline 25 mg nightly Symptoms are intermittently controlled Patient is currently on disability Anxiety and depression Longstanding history of anxiety depression, acutely exacerbated circumstantially after taking care of her parents We will start Celexa 20 mg daily Patient was given handout to reach out to counseling services locally Alarming/Red flag signs and symptoms discussed with the patient, patient instructed to seek medical attention at ED [facility] if any such symptoms develop. Pt expressed understanding. Relevant Medications citalopram (CELEXA) 20 MG tablet Hypertension - Primary Severely elevated blood pressure noted in clinic Patient received 0.25 m of clonidine in clinic and this brought patient's blood pressure down from 200/ 126 to 193/147 Will test tsh, ha1c, renin, aldosterone, metanephrines -Discussed-diet and low-sodium diet, tobacco cessation and avoidance of caffeine We will start hydrochlorothiazide 25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 Relationship Specialty Start Date End Date Nurys Collins MD [address] [address] PCP - DADA Attributed Provider - MMO Medicare 03/30/20 03/29/50 Scott Lucio MD [facility] [address] [address] PCP - General Family Medicine 02/10/23 FOR RECORDS PERTAINING TO PATIENTS WHO ARE OR HAVE BEEN ENROLLED IN A CHEMICAL DEPENDENCY/SUBSTANCEABUSE PROGRAM, SOME INFORMATION MAY BE OMITTED. This clinical summary was aggregated from multiple sources. Caution should be exercised in using it in the provision of clinical care. This summary normalizes information from multiple sources, and as a consequence, information in this document may materially change the coding, format and clinical context of patient data. In addition, data may be omitted in some cases. CLINICAL DECISIONS SHOULD BE BASED ON THE PRIMARY CLINICAL RECORDS. [facility] [employer] [facility]. provides no warranty or guarantee of the accuracy or completeness of information in this document.
[2023-06-04] MEDS: Lactated Ringers 1,000 ML 15 ML IV (06:45)
[2023-06-04 07:11] VITALS: BP 148/108; PULSE 83; RESP 16; TEMP 36.1; O2SAT 100; BMI 37.6
--- NOTE | 2023-06-04 09:11 | DCINST_ITS ---
Discharge Instructions Diet Discharge Diet: No restrictions Activity Discharge Activity: Return to Normal Activity May resume sexual activity in: No Restrictions Dressing / Incision Call your doctor if you observe: Fever of 101 or Higher, Inability to urinate and Inability to have a bowel movement Follow Up Care Please Follow Up With: Stacie Zhu MD When: The office will call her to make follow up appointment. Test Results: Test results from this visit will be discussed in further detail at your follow- up appointment, if applicable. Discharge Plan Admission Attending Provider: Stacie Zhu Primary Care Provider: SCOTT AMOR Discharge Orders/Prescriptions Prescriptions: New oxycodone-acetaminophen [Percocet] 5-325 mg tablet 1 tab PO Q8H PRN (Reason: pain) 3 Days Qty: 10 0RF cephalexin [cephalexin] 500 mg capsule 500 mg PO Q12 3 Days Qty: 6 0RF phenazopyridine [Pyridium] 200 mg tablet 200 mg PO TID PRN PRN (Reason: Bladder Spasms) 7 Days Qty: 30 0RF Continued gabapentin 400 mg capsule 800 mg PO 4X/DAY Patient Comments: TAKE 2 (TWO) CAPSULES (800 MG TOTAL) BY MOUTH 4 (FOUR) TIMES A DAY . hydroxyzine HCl 10 mg tablet 20 mg PO QHS Patient Comments: TAKE 1 (ONE) TABLET (10 MG TOTAL) BY MOUTH 3 (THREE) TIMES A DAY NEEDED FOR ITCHING . nortriptyline 25 mg capsule 25 mg PO QHS Patient Comments: TAKE 1 (ONE) CAPSULE (25 MG TOTAL) BY MOUTH AT BEDTIME . clonazepam 0.5 mg tablet 0.5 mg PO QHS Patient Comments: TAKE 1 (ONE) TABLET (0.5 MG TOTAL) BY MOUTH AT BEDTIME . oxcarbazepine 150 mg tablet 150 mg PO BID Patient Comments: TAKE 1 (ONE) TABLET (150 MG TOTAL) BY MOUTH 2 (TWO) TIMES A DAY . lisinopril 40 mg tablet 40 mg PO DAILY pravastatin 20 mg tablet 20 mg PO QHS Patient Comments: TAKE 1 TABLET (20 MG) BY MOUTH AT NIGHT tizanidine 4 mg tablet 4 mg PO TID PRN Patient Comments: TAKE 1 (ONE) TABLET (4 MG TOTAL) BY MOUTH 3 (THREE) TIMES A DAY NEEDED FOR MUSCLE SPASMS . Gemtesa 75 mg tablet 75 mg PO DAILY estradiol 0.1 mg/24 hr patch semiweekly 1 patch transdermal .2X/WK Patient Comments: PLACE 1 (ONE) PATCH ON THE SKIN TWICE WEEKLY THURSDAY, THURSDAY START: 05/07/23. multivitamin [Daily Multi-Vitamin] Tablet 1 tab PO DAILY Other Ambulatory Orders: 12 Lead EKG (Routine) Timeframe: [id number] Location: None Selected Ordered By: Dr. Ochoa Bartlett Referrals / Follow Up: SCOTT AMOR MD [Primary Care Provider] - Disposition Disposition (needs filled in before D/C Order can be placed): Home, Self Care
--- NOTE | 2023-06-04 09:14 | PCM.OPRPT ---
Report of Operation Date of Procedure: 06/04/23 Pre-Operative Diagnosis: Interstitial cystitis Post-Operative Diagnosis: Same Surgery/Procedure Performed:: Cystoscopy, hydrodistension, pelvic exam under anesthesia Description of Surgical Findings:: Capacity of 500 cc. No glomerulations, no Hunner's ulcers and no hematuria. Pelvic floor diffusely with high tone. Surgeon: Stacie Zhu Type of Anesthesia: MAC Description of Procedure: The patient is a 37-year-old female with a history of interstitial cystitis who presents for evaluation for possible Hunner's ulcers. Informed consent has been obtained. The patient was taken to the operating room and placed on the operating room table. Anesthesia monitored the head, neck, airway, IV access and vital signs throughout the case. Once anesthesia was appropriately administered the patient was placed into dorsolithotomy position and was prepped and draped in usual sterile fashion. Pelvic examination revealed bilateral posterior pelvic floor to be extremely tense without any specific trigger points. The cystoscope was inserted through the urethra under direct visualization into the urinary bladder. The bladder mucosa and the urethra were visualized directly with no evidence of mass, erythema or ulceration present, and there was no foreign body. The bladder was then filled to capacity and allowed to sit for 2 minutes. There was no terminal hematuria present or glomerulations. Her capacity was measured at 500 cc. This distention was repeated again for 2 minutes. On emptying, her bladder only held approximately 550 cc. At this time the cystoscope was removed and she was awakened and taken to the recovery room in good condition. There were no complications during this procedure. Complications None Admit VTE Documentation VTE Present on Admission: Yes VTE Mechan Device Prophylaxis: SCD's VTE Pharm Prophylaxis ordered?: No Reason prophylaxis not ordered:: Treatment Not Indicated
[2023-06-04 09:42] VITALS: BP 148/108; BP 150/106; PULSE 86; RESP 16; TEMP 36.2; O2SAT 100
[2023-06-04 09:45] VITALS: BP 148/108; BP 150/102; PULSE 85; RESP 16; O2SAT 100
[2023-06-04 09:50] VITALS: BP 148/108; BP 159/103; PULSE 82; RESP 16; O2SAT 100
[2023-06-04 10:00] VITALS: BP 148/108; BP 166/102; PULSE 85; RESP 16; O2SAT 100
[2023-06-04 10:15] VITALS: BP 148/108; BP 163/102; PULSE 85; RESP 16; TEMP 36.5; O2SAT 100
[2023-06-04] MEDS: Oxycodone/Apap 5/325 Tablet PO (10:56)
[2023-06-04] MEDS: Phenazopyridine 95 MG Tablet 190 MG PO (10:57)
== END 2023-06-04 11:00 | disposition home or self-care (01) ==
LOC: SDC 06:40 → AC 06:41
PROVIDERS: PCP Family Medicine; Referring Provider Urology; Visit Provider Urology
PROC: 0TBB8ZX Excision of Bladder, Via Natural or Artificial Opening Endoscopic, Diagnostic (ICD-10-PCS; CPT 52260; principal; 2023-06-04 08:10)
DX: N30.10 Interstitial cystitis (chronic) without hematuria (principal); R39.82 Chronic bladder pain; I10 Essential (primary) hypertension; E78.00 Pure hypercholesterolemia, unspecified; F32.A Depression, unspecified; F41.9 Anxiety disorder, unspecified; F17.200 Nicotine dependence, unspecified, uncomplicated; Z90.49 Acquired absence of other specified parts of digestive tract; Z79.899 Other long term (current) drug therapy; Z62.810 Personal history of physical and sexual abuse in childhood
CPT/HCPCS: 52260; 00910; 93005; J7120; J2405